=== PATIENT | male | born 1990 | race Caucasian/White ===

== ENCOUNTER 2018-10-28 06:46 | Emergency (ER) | payer OTHER, SELFPAY ==
[2018-10-28 06:56] VITALS: BP 155/96; PULSE 68; RESP 15; TEMP 37; O2SAT 98; BMI 39.1
--- NOTE | 2018-10-28 07:30 | ED.EYEPROB ---
HPI - Eye Problem General Chief complaint: Eye Problems Stated complaint: SOMETHING IN RT EYE Time Seen by Provider: 10/28/18 07:08 Source: patient Mode of arrival: ambulatory Limitations: no limitations History of Present Illness HPI Narrative: Patient is a 27-year-old male who presents with right eye pain. 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 He was taking off the mask when he felt something go into his right high. He has had pain and irritation ever since. He you can see a metal speck is in his eye. Unsure when his last tetanus was. He denies blurry vision or double vision. chief complaint: eye pain and eye redness Onset (ago): day(s) (1) Onset description: sudden Location: right eye Eye Symptoms: pain and foreign body sensation Place: work Related Data Patient tetanus UTD: No Previous Rx's Medication Instructions Recorded polymyxin B sulf-trimethoprim 1 drop EYE-RIGHT Q4HRWA #10 ml 10/28/18 Allergies Allergy/AdvReac Type Severity Reaction Status Date / Time No Known Drug Allergies Allergy Verified 10/28/18 07:02 Review of Systems Review of Systems GENERAL: Denies chills,fever HEENT: See HPI RESPIRATORY: Denies dyspnea, cough, wheezing CARDIOVASCULAR: Denies chest pain, palpitations GASTROINTESTINAL: Denies nausea, vomiting MUSCULOSKELETAL: Denies extremity pain, injury SKIN: No rash, no laceration, no pruritus NEUROLOGIC: Denies weakness, dizziness, headache, numbness 8 point review of systems is negative except for those stated above and HPI PFSH Medical History Healthy adult (Acute) Social History Smoking Status: Never smoker alcohol intake: never substance use type: does not use Exam Initial Vital Signs Initial Vital Signs: Vital Signs Temperature 98.6 F 10/28/18 06:56 Pulse Rate 68 10/28/18 06:56 Respiratory Rate 15 10/28/18 06:56 Blood Pressure 155/96 H 10/28/18 06:56 Pulse Oximetry 98 10/28/18 06:56 GENERAL: Well-appearing, well-nourished and in no acute distress. CARDIOVASCULAR: peripheral pulses in tact, cap refill <2 sec RESPIRATORY: No respiratory distress, speaks in full sentences without difficulty EXTREMITIES: Normal range of motion, no clubbing or edema. Neurovascularly intact NEUROLOGICAL: Cranial nerves II through XII grossly intact. Normal gait and speech. SKIN: Warm, dry, no petechiae, no rashes or lesions. Eyes Alignment and Position: alignment normal Periorbital: periorbital findings normal Eyelids: eyelids normal Sclera: scleral abnormality right scleral injection diffuse Cornea: corneas abnormal on the right foreign body (11:00 position) metallic and fluorescein used Pupils: PERRL EOM: EOM intact bilaterally Procedures Foreign Body EYE Time Out performed: Yes Location: eye (R) Topical anesthetic used: proparacaine Foreign body: metal Evidence of corneal penetration: Yes Technique: cotton tip swab and needle Procedure performed under: slit-lamp Post-procedure medication: ophthalmic antibiotic Patient tolerated procedure: well Course Orders Ordered: Discontinued Medications Proparacaine HCl (Parcaine 0.5% Ophth Hyun) 1 drops EYE-RIGHT NOW ONE Stop: 10/28/18 08:08 Last Admin: 10/28/18 08:09 Dose: 1 drop T dap Vital Signs - 8 hr 10/28/18 06:56 10/28/18 08:15 Temperature 98.6 F Pulse Rate 68 67 Respiratory Rate 15 16 Blood Pressure 155/96 H 154/88 H Pulse Oximetry 98 97 Discharge Plan Departure Patient Disposition: Home Clinical Impression: Foreign body of eyelid, right Discharge Date/Time: 10/28/18 08:16 Interventions: ED Discharge Assessment Last Done: 10/28/18 08:15 Instructions: DI for Corneal Foreign Body-Eye Activity Restrictions/Additional Instructions: *You have been diagnosed with right eye foreign body *What to do: Expect eye would be sore for the next 1-2 days *Continue to take medications as directed Tylenol or Motrin as directed if needed for pain Polytrim 1 drop in right eye every 4 hr while awake *Follow up with your primary care provider in 2-3 days *Return to ER if you should have increasing pain, redness, blurry vision, double vision or change admission [or] any new, worsening or concerning symptoms Prescriptions: New polymyxin B sulf-trimethoprim 10,000 unit- 1 mg/mL drops 1 drop EYE-RIGHT Q4HRWA Qty: 10 RF: 0 Referrals: Milana Booker MD [Physician] - Michael Thomason MD [Primary Care Provider] - Stand Alone Forms: Work Release Note
[2018-10-28] MEDS: DIPHTH,PERTUSS(ACELL),TET VAC 0.5 ML SYRINGE IM (08:02)
[2018-10-28] MEDS: PROPARACAINE 0.5% OPHTH SOL 1 DROPS EYE-RIGHT (08:09)
[2018-10-28 08:15] VITALS: BP 154/88; PULSE 67; RESP 16; O2SAT 97
--- NOTE | 2018-10-28 08:15 | PC.NURSE ---
pt offered l&i form, refused, states, the company is under different coverage.
== END 2018-10-28 08:16 | disposition home or self-care (01) ==
PROVIDERS: Emergency Provider Emergency Medicine; PCP Family Medicine
DX: S00.251A Superficial foreign body of right eyelid and periocular area, initial encounter (principal); Y99.0 Civilian activity done for income or pay
CPT/HCPCS: 65205; 90471; 90715; 99282; 99283

== ENCOUNTER → 2020-05-19 13:13 | Outpatient (CLI) | payer OTHER, SELFPAY ==
--- NOTE | 2020-05-19 | DI.RAD.S_ITS ---
PROCEDURE: XR FOOT LT MIN 3V INDICATIONS: LEFT FOOT PAIN TECHNIQUE: 3 views of the foot were acquired. COMPARISON: None. FINDINGS: Bones: No fractures or dislocations. No suspicious bony lesions. Soft tissues: No tibiotalar joint effusion. Achilles tendon appears normal. IMPRESSION: Normal for age, source of current left foot pain symptoms is not seen. Dictated by: Jacobo Golden M.D. on 05/19/2020 at 13:58 Approved by: Jacobo Golden M.D. on 05/19/2020 at 13:59
== END ==
PROVIDERS: PCP Family Medicine; Referring Provider Family Medicine; Visit Provider Family Medicine
DX: M79.672 Pain in left foot (principal)
CPT/HCPCS: 73630

== ENCOUNTER → 2021-10-01 14:42 | Outpatient (ROUT) | payer OTHER, SELFPAY ==
[2021-10-01 15:02] LABS: COVID19 -Nasal RAPID Negative (Negative)
== END ==
PROVIDERS: Visit Provider Family Medicine
DX: Z11.52 Encounter for screening for COVID-19 (principal)
CPT/HCPCS: 87635

== ENCOUNTER → 2021-11-30 12:44 | Outpatient (ROUT) | payer OTHER, SELFPAY ==
[2021-11-30 13:08] LABS: COVID19 -Nasal RAPID Negative (Negative)
== END ==
PROVIDERS: Visit Provider Family Medicine
DX: Z20.822 Contact with and (suspected) exposure to COVID-19 (principal); R05.9 Cough, unspecified; R50.9 Fever, unspecified
CPT/HCPCS: 87635

== ENCOUNTER → 2022-08-03 16:48 | Outpatient (CLI) | payer OTHER, SELFPAY ==
--- NOTE | 2022-08-03 16:50 | DI.MRI.S_ITS ---
PROCEDURE: MR SHOULDER LT WO CON INDICATIONS: Bursitis of left shoulder TECHNIQUE: Noncontrast oblique coronal T2 fast spin echo with fat saturation, oblique sagittal T1 spin echo and T2 fast spin echo with fat saturation, axial T1 spin echo and T2 fast spin echo with fat saturation through the shoulder. COMPARISON: None. FINDINGS: Image quality: Excellent. Rotator cuff: The supraspinatus, infraspinatus, and subscapularis tendons appear intact throughout. Sagittal images demonstrate now muscle atrophy. Bones and bursae: No bone marrow contusions or fractures. Moderate acromioclavicular joint degeneration. The acromion demonstrates conventional anatomy, without an os acromiale. No pathologic subacromial-subdeltoid or subcoracoid bursal fluid is present. Capsule and soft tissues: Labrum is within normal limits The long head of the biceps tendon demonstrates normal location and morphology. The rotator interval appears normal, without fibrosis. The coracohumeral ligament is normal in thickness. IMPRESSION: 1. No rotator cuff tear. 2. Acromioclavicular joint osteoarthritis. Dictated by: Ismael Loza M.D. on 08/04/2022 at 9:54 Approved by: Ismael Loza M.D. on 08/04/2022 at 9:55
== END ==
PROVIDERS: Referring Provider Family Medicine; Visit Provider Family Medicine
DX: M75.52 Bursitis of left shoulder (principal); M19.012 Primary osteoarthritis, left shoulder
CPT/HCPCS: 73221

== ENCOUNTER → 2024-05-07 14:30 | Outpatient (ROUT) | payer OTHER, SELFPAY ==
[2024-05-07 14:42] LABS: Add Manual Diff / Slide Review NO; Basophils Absolute Auto 0 /uL (0-100); Basophils Percent Auto 0.6 % (0-2); Eosinophils Absolute Auto 100 /uL (0-450); Eosinophils Percent Auto 1.9 % (2-4); Hemoglobin 15.4 g/dL (13.5-17.5); Lymphocytes Absolute Auto 2700 /uL (1100-4500); Lymphocytes Percent Auto 37.3 % (25-40); Mean Corpuscular HGB Conc 34.2 % (30-36); Mean Corpuscular Hemoglobin 29.8 PG (26-34); Mean Corpuscular Volume 87.1 fL (80-100); Monocytes Absolute Auto 1000 /uL (0-900); Monocytes Percent Auto 13.4 % (3-14); Neutrophils Absolute Auto 3400 /uL (1500-7000); Neutrophils Percent Auto 46.8 % (50-75); Platelet Count 291 X10^3/uL (150-400); Red Blood Cell Count 5.17 X10^6/uL (4.5-5.9); Red Cell Distribution Width 13.1 % (11.6-14.8); White Blood Cell Count 7.2 X10^3/uL (4.5-11.0)
[2024-05-07 14:58] LABS: Alanine Aminotransferase 36 IU/L (<50); Albumin 4.6 g/dL (3.5-5.0); Albumin Globulin Ratio 1.8 (1.0-2.8); Alkaline Phosphatase 110 U/L (38-126); Aspartate Aminotransferase 31 IU/L (17-59); Bilirubin Total 0.5 mg/dL (0.2-1.3); Blood Urea Nitrogen 16 mg/dL (9-20); Calcium 8.9 mg/dL (8.4-10.2); Carbon Dioxide 30 mmol/L (22-32); Chloride 106 mmol/L (98-107); Estimated Glomerular Filt Rate > 60 mL/min (>60); Globulin 2.5 g/dL (1.7-4.1); Glucose 87 mg/dL (70-100); HEMOLYSIS < 15 (0-50); Potassium 4.5 mmol/L (3.4-5.1); Sodium 144 mmol/L (137-145); Total Protein 7.1 g/dL (6.3-8.2)
[2024-05-07 15:29] LABS: Prostate Specific Antigen 0.593 ng/mL (0.10-4.00)
== END ==
PROVIDERS: Visit Provider Family Medicine
DX: N40.1 Benign prostatic hyperplasia with lower urinary tract symptoms (principal)
CPT/HCPCS: 80053; 84153; 85025

== ENCOUNTER 2025-06-11 10:52 | Emergency (ER) | payer OTHER, SELFPAY ==
[2025-06-11] VITALS (10 sets, daily range): BP systolic 136–148; BP diastolic 71–80; PULSE 57–105; RESP 19–57; TEMP 36.8–37.1; O2SAT 83–100; BMI 31.3
--- NOTE | 2025-06-11 11:06 | DI.CT.S_ITS ---
PROCEDURE: CT HEAD/BRAIN WO CON INDICATIONS: hit head, landing on pipes. TECHNIQUE: Noncontrast 4.5 mm thick angled axial sections acquired from the foramen magnum to the vertex, with coronal and sagittal reformats. For radiation dose reduction, the following was used: automated exposure control, adjustment of mA and/or kV according to patient size. COMPARISON: None. FINDINGS: Image quality: Diagnostic CSF spaces: Basal cisterns are patent. Slightly larger right lateral ventricle compared to the left, probably chronic. No hydrocephalus. Volume: Generally maintained. Brain: No acute hemorrhage. No gross loss of grimes-white differentiation Craniofacial structures: No significant paranasal sinus opacity. IMPRESSION: No acute intracranial pathology. Dictated by: Alf Martinez M.D. on 06/11/2025 at 11:44 Approved by: Alf Martinez M.D. on 06/11/2025 at 11:45
--- NOTE | 2025-06-11 11:14 | PC.NURSE ---
Pt has wound to right of head. Sanguionous drainage noted.
--- NOTE | 2025-06-11 11:14 | DI.CT.S_ITS ---
PROCEDURE: CT CERVICAL SPINE WO CON INDICATIONS: patient hit by heavy steel pipe on head, r/o cervical injury TECHNIQUE: Noncontrast 3 mm thick sections acquired from the skull base to the T4 level. Sagittal and coronal reformats were then constructed. For radiation dose reduction, the following was used: automated exposure control, adjustment of mA and/or kV according to patient size. COMPARISON: None. FINDINGS: Image quality: Diagnostic Bones: Vertebral body heights are well maintained. Likely chronic fracture fragment at the spinous process of T1. No traumatic subluxation. Soft tissues: No apical pneumothorax. No pathologic prevertebral swelling. IMPRESSION: No displaced fracture or traumatic subluxation. If there is high concern for further derangement, consider MRI evaluation. Dictated by: Alf Martinez M.D. on 06/11/2025 at 11:46 Approved by: Alf Martinez M.D. on 06/11/2025 at 11:47
--- NOTE | 2025-06-11 11:15 | DI.RAD.S_ITS ---
PROCEDURE: XR RIBS BI MIN 4V W CXR1V INDICATIONS: Patient fell on steel pipe from a height, has left rib pain TECHNIQUE: 3 views of the ribs were acquired, along with a single view chest. COMPARISON: [facility], CT, CT CERVICAL SPINE WO [facility], 06/11/2025, 11:16. [facility], CT, CT HEAD/BRAIN WO [facility], 06/11/2025, 11:16. FINDINGS: Surgical changes and devices: None. Bones and chest wall: No fractures or dislocations. No suspicious bony lesions. Overlying soft tissues appear unremarkable. Lungs and pleura: No pleural effusions or pneumothorax. Lungs appear clear. Mediastinum: Mediastinal contours appear normal. Heart size is normal. IMPRESSION: No displaced rib fracture or pneumothorax. If there is strong clinical concern for chest trauma in this patient, please consider a follow-up chest CT with IV contrast for further evaluation. Dictated by: Aaron Solorzano M.D. on 06/11/2025 at 10:44 Approved by: Aaron Solorzano M.D. on 06/11/2025 at 10:45
[2025-06-11] MEDS: LACTATED RINGERS 500 ML 1000 ML IV (11:40)
--- NOTE | 2025-06-11 23:26 | ED.FALL ---
HPI - Fall General Chief Complaint: Fall Stated Complaint: Hit head, Landed on pipes Time Seen by Provider: 06/11/25 11:05 Source: patient Mode of arrival: Ambulatory History of Present Illness HPI Narrative: This 34-year-old male presents to the emergency room with a that he fell from a distance on pipes while at work today. He fell on the pipes with his left chest. He was hit by another pipe over his head that flipped back. He suffered no loss of consciousness. Did suffer a small laceration to his right temporal scalp. Tetanus status is believed current. His employer accompanies the patient. Related Data Previous Rx's ?Medication ?Instructions ?Recorded polymyxin B sulfate 10,000 1 drop EYE-RIGHT Q4HRWA #10 mL 10/28/18 unit-trimethoprim 1 mg/mL eye drops Allergies Allergy/AdvReac Type Severity Reaction Status Date / Time No Known Drug Allergies Allergy Verified 06/11/25 11:11 Review of Systems Review of Systems Narrative: Malaise secondary to a fall at work in which patient was struck on the head and also landed on his left chest on a hard surface. Constitutional Comments: Pain over right scalp and over left chest ENT Comments: Right temporal scalp reveals a laceration Respiratory Comments: Pain over her left chest particularly on taking a deep breath Gastrointestinal Comments: Nontender Musculoskeletal Comments: Normal range of motion no apparent injury except over the right dorsal elbow mildly normal range of motion of the right elbow wrist and the hand intact neurovascular distally. Neurologic Comments: The patient did not have loss of consciousness when he was hit by the pipe. But he did reveal a small laceration over his right temporal scalp Patient History Medical History (Updated 06/11/25 @ 12:25 by Ronit Camacho MD) Healthy adult Social History (Updated 10/28/18 @ 07:33 by Alem Pacheco DO) alcohol intake: never substance use type: does not use Smoking Status: Never smoker Exam Initial Vital Signs Initial Vital Signs: Vital Signs Pulse Rate 73 06/11/25 10:54 Pulse Oximetry 99 06/11/25 10:54 Const Other: Adult male who appears uncomfortable on any manipulation of his scalp or chest wall. He is alert and oriented x3 HENMT HENMT Other: There is a visible 1 point 5 cm oblique laceration, approximately 0.25 cm deep over the right temporal scalp. There is mild edema about the area and minimal bleeding. Eyes Pupils: PERRL EOM: EOM intact bilaterally Neck Other: No severe palpable tenderness but range of motion was not attempted prior to CT Chest Other: Palpable moderate tenderness over the left lower anterior ribs. No crepitus splinted breath sounds on the left as compared to the right Resp Other: Patient is splinting his left chest as mentioned Cardio Other: Slightly rapid regular rhythm without murmur GI Other: Nontender adequate bowel sounds Back/Spine/Pelvis Other: No spinal tenderness normal range of motion. Neuro General: patient alert and patient oriented x3 Other: No focal deficits. Extrem Other: Mild dorsal right elbow tenderness but normal range of motion of the upper extremities as well as the lower extremities intact neurovascular status throughout. Course Course Course Narrative: This patient experienced a fall on a load of hard steel pipes and was also hit by a pipe that flipped up during the incident and hit his right head. He suffered a small laceration to his scalp from the incident. It was not felt that the laceration with significant warrant suture repair. It was therefore closed with Dermabond after being cleansed with saline. The patient was recommended getting the inflatable support vest for his rib tenderness however rib films do not reveal any fracture. He suspected to have a rib contusion. CT of the head was negative for intracranial bleed or skull fracture. CT of the cervical spine was negative for fracture. The patient was given morphine for pain while in the ER but he did not want any narcotics to be prescribed on his discharge. He will simply use ibuprofen as needed. He should pursue light activity this afternoon. Follow-up as needed. Orders Ordered: Discontinued Medications Lactated Ringer's (Lactated Ringers) 500 mls @ 1,000 mls/hr IV BOLUS ONE Stop: 06/11/25 11:48 Last Infusion: 06/11/25 12:37 Dose: Infused Documented By: Admin: 06/11/25 11:40 Dose: 1,000 mls/hr Documented By: Morphine Sulfate (Morphine 2 Mg/Ml Inj) 2 mg IV NOW ONE Stop: 06/11/25 11:19 Last Admin: 06/11/25 11:48 Dose: Not Given Documented By: Ondansetron HCl (Ondansetron 4 Mg/2 Ml Inj) 4 mg IV NOW ONE Stop: 06/11/25 11:19 Last Admin: 06/11/25 11:48 Dose: Not Given Documented By: Discharge Plan Departure Patient Disposition: Home Clinical Impression: Concussion without loss of consciousness Prescriptions: No Action polymyxin B sulf-trimethoprim 10,000 unit- 1 mg/mL drops 1 drop EYE-RIGHT Q4HRWA Qty: 10 0RF Rx Instructions: for 1 week Stand Alone Forms: Patient Portal/API
== END 2025-06-11 12:32 | disposition home or self-care (01) ==
PROVIDERS: Emergency Provider Emergency Medicine
DX: S06.0X0A Concussion without loss of consciousness, initial encounter (principal); S01.01XA Laceration without foreign body of scalp, initial encounter; W18.09XA Striking against other object with subsequent fall, initial encounter
CPT/HCPCS: 70450; 71111; 72125; 99283; 99284; J2270; J2405